=== PATIENT | female | born 2000 | race Asian ===

== ENCOUNTER 2022-04-30 09:16 | Outpatient (CLI) | payer BC, SELFPAY ==
[2022-04-30 18:47] LABS: Chlamydia DNA Amplified* NOT DETECTED (No Detected); GC DNA Amplified* NOT DETECTED (No Detected)
[2022-05-01 15:23] LABS: Estradiol Premenol Female 159 pg/mL
[2022-05-01 16:15] LABS: Follicle Stimulating Hormone 1.7 IU/L
[2022-05-01 21:05] LABS: Prolactin 15.8 ng/mL (2.8-29.2)
[2022-05-06 19:06] LABS: Sex Hormone Binding Globulin 26 nmol/L (25-122); Testosterone Bioavailable 13.4 ng/dL (2.2-20.6); Testosterone, Free LC-MS/MS 4.5 pg/mL (0.8-7.4); Testosterone, LC-MS/MS 25 ng/dL (9-55)
== END 2022-04-30 09:17 | disposition home or self-care (01) ==
PROVIDERS: Visit Provider Registered Nurse
DX: N91.2 Amenorrhea, unspecified (principal); N89.8 Other specified noninflammatory disorders of vagina; Z12.4 Encounter for screening for malignant neoplasm of cervix
CPT/HCPCS: 82670; 83001; 83498; 84146; 84270; 84402; 84403; 84443; 87491; 87591

== ENCOUNTER 2023-05-31 18:01 | Outpatient (CLI) | payer BC, MEDICAID, SELFPAY | END 2023-05-31 18:02 | disposition home or self-care (01) | LOC: NFLDREF 18:04 | PROVIDERS: Visit Provider Registered Nurse | DX: R61 Generalized hyperhidrosis (principal) | CPT/HCPCS: 84443 ==